=== PATIENT | male | born 1965 | race American Indian/Alaskan Native ===

== ENCOUNTER 2017-02-26 07:34 | Day surgery (SDC) | payer MEDICARE ==
[~2017-02-26 07:34] MED LIST: LEXISCAN IV ONE; NACL 0.9 (PRIMING MACHINE ONLY DIALYSIS) MC ONE; PROVENTIL IH ONE
[2017-02-26] MEDS ORDERED: WATER FOR IRRIG STERILE IR ONE (08:11)
[2017-02-26] MEDS ORDERED: WATER FOR IRRIG STERILE ONE (08:12)
[2017-02-26] MEDS ORDERED: DIPRIVAN 10 MG/ML IV ONE ×3 (08:52→09:27)
[2017-02-26] MEDS ORDERED: NACL 0.9% 1000 ML 1,000 ML IV SCH (09:00)
--- NOTE | 2017-02-26 09:24 | Post Operative Note ---
Pre-op diagnosis: screening colonsocopy Post-op diagnosis: other (1.2 cm semi-pedunculated polyp removed, few tics) Findings: ~1.2 cm semi-pedunculated polyp removed with hot snare Few diverticula in the right side of colon Procedure: colonoscopy with polypectomy Anesthesia: MAC Surgeon: SHILPI JHAVERI Estimated blood loss: minimal Pathology: list (Jar A - sigmoid polyp) Specimen disposition: to lab Condition: stable Disposition: same day
[2017-02-26 09:55] VITALS: BP 156/91
--- NOTE | 2017-02-26 10:10 | Anesthesia Day of Surgery ---
Anesthesia Day of Surgery - Day of Surgery Patient Examined: Yes Patient H&P Reviewed: Yes Patient is NPO: Yes
--- NOTE | 2017-02-26 10:10 | Anesthesia Consultation ---
Anesthesia Consult and Med Hx Date of service: 02/26/17 - Airway Anesthetic Teeth Evaluation: Good ROM Head & Neck: Adequate Mental/Hyoid Distance: Adequate Mallampati Class: Class II Intubation Access Assessment: Probably Good - Pulmonary Exam CTA: Yes - Cardiac Exam Cardiac Exam: RRR - Pre-Operative Health Status ASA Pre-Surgery Classification: ASA3 Proposed Anesthetic Plan: MAC - Pulmonary Hx Smoking: Yes (2cigs/day for 20 years) Hx Asthma: No - Cardiovascular System Hx Hypertension: Yes Hx Heart Murmur: Yes (grade 2-3) - Central Nervous System Hx Seizures: No CVA: No - Endocrine Hx Renal Disease: Yes Hx End Stage Renal Disease: Yes (dialyze MWF) - Hematic Hx Sickle Cell Disease: No - Additional Comments Anesthesia Medical History Comments: NAC
--- NOTE | 2017-02-26 22:58 | Operative Report ---
PROCEDURE: Colonoscopy. PREOPERATIVE DIAGNOSIS: Screening colonoscopy. POSTOPERATIVE DIAGNOSES: A 1.2 cm polyp removed, diverticulosis. ANESTHESIA: Monitored anesthesia care. COMPLICATIONS: No immediate complications. ESTIMATED BLOOD LOSS: Minimal. DESCRIPTION OF PROCEDURE: After consent was obtained, the patient was placed in left lateral decubitus position. The Fujinon colonoscope was advanced with direct vision through the anus and advanced to the cecum without difficulty. The patient tolerated the procedure well. The views of mucosa were good. The quality of the prep was good. FINDINGS: There was a 1.2 cm semi-pedunculated polyp in the sigmoid colon. The polyp was removed with hot snare and retrieved. There were a few small-mouthed diverticula throughout the colon. IMPRESSION: 1. A 1.2 cm polyp removed as above. 2. Mild diverticulosis. RECOMMENDATIONS: 1. Follow up pathology. 2. High fiber diet daily. 3. Repeat colonoscopy in 3 years for surveillance purposes. 4. RTC as scheduled JOB# [id number] [facility]
--- NOTE | 2017-02-27 10:21 | Post Anesthesia Evaluation ---
- Post Anesthesia Evaluation Patient Participated: Yes Airway Patent: Yes Stable Respiratory Function: Yes Nausea/Vomiting: No Temp > 96.8F: Yes Pain Manageable: Yes Adequeate Hydration: Yes Anesthesia Complications: No Block Receding Appropriately: Not Applicable Patient on Ventilator: No
== END 2017-02-26 07:35 | disposition home or self-care (01) ==
LOC: GIO 07:34
PROVIDERS: ATTEND Internal Medicine Gastroenterology
DX: Z12.11 Encounter for screening for malignant neoplasm of colon (principal); D12.5 Benign neoplasm of sigmoid colon; K57.30 Diverticulosis of large intestine without perforation or abscess without bleeding; F17.210 Nicotine dependence, cigarettes, uncomplicated; I12.0 Hypertensive chronic kidney disease with stage 5 chronic kidney disease or end stage renal disease; N18.6 End stage renal disease; Z99.2 Dependence on renal dialysis
CPT/HCPCS: 45385; 88305; J2704; J2785; J7030

== ENCOUNTER 2017-08-04 04:21 | Emergency (ER) | payer MEDICARE ==
--- NOTE | 2017-08-04 04:41 | Emergency Department Report ---
HPI - General Chief Complaint: Cardiac Arrest/CPR Time Seen by Provider: 08/04/17 04:36 - HPI HPI: The patient is given 51-year-old male with a history of end-stage renal disease , who presents via EMS in cardiac arrest. Per EMS the patient was found unresponsive in cardiac arrest 35 minutes prior to arrival. EMS states that the patient was last observed normal at 2 AM, 2 hours prior to arrival. EMS states that they immediately started CPR and provided the patient multiple rounds of epinephrine and CPR prior to arrival. ED Past Medical Hx - Past Medical History Hx Hypertension: Yes Hx Congestive Heart Failure: No Hx Diabetes: No Hx Renal Disease: Yes (Dialysis -W- [facility] Dr. [place]) Hx Sickle Cell Disease: No Hx Seizures: No Hx Asthma: No Hx COPD: Yes - Surgical History Additional Surgical History: RIGHT ARM AV GRAFT - Social History Smoking Status: Never Smoker - Medications Home Medications: Home Medications Medication Instructions Recorded Confirmed Last Taken Type Amlodipine Besylate [Norvasc] 10 mg PO DAILY 07/22/17 07/22/17 07/21/17 History Calcium Acetate [Phoslo] 2 - 3 cap PO TIDWM 07/22/17 07/22/17 07/21/17 History Carvedilol [Coreg] 25 mg PO BID 07/22/17 07/22/17 07/21/17 History cloNIDine [Clonidine] 1 each TD QWEEK 07/22/17 07/22/17 Unknown History hydrALAZINE [Apresoline TAB] 100 mg PO TID 07/22/17 07/22/17 07/21/17 History Pantoprazole [Protonix TAB] 40 mg PO DAILY #30 tablet 07/24/17 Unknown Rx ED Review of Systems ROS: Stated complaint: CARDIAC ARREST Other details as noted in HPI Comment: Unobtainable due to pts medical conditions (unresponsive) Physical Exam - Physical Exam Physical Exam: Physical Exam: General: well-nourished, well-developed Head: Normocephalic, atraumatic Eyes: Pupils were fixed and dilated, unresponsive to light ENT: ET tube present in mouth Neck: no appreciable carotid bruit or thrill Respiratory: Breath sounds equal with bagging/assisted ventilations Cardio: No distal pulses, extremities cold to touch Abdomen: soft abdomen, no obvious distention, no epigastric breath sounds with assisted ventilation Musc: No pitting edema Skin: No rash Neuro: Patient unresponsive to verbal or painful stimuli, no abnormal tonicity or posturing ED Medical Decision Making - Medical Decision Making The patient was seen and examined by myself. The patient is placed on a cardiac cath rn and continuous pulse ox. On arrival the patient was found to remain unresponsive and in cardiac arrest. Initial monitor rhythm in ED exhibits asystole. NS fluid bolus was started, and the patient is given epinephrine, calcium gluconate, and sodium bicarbonate. FS Glucose found to be wnl. Despite multiple rounds of CPR and ACLS medications given to the patient, the patient remained without pulse and in cardiac arrest. As the patient has wide and fixed dilated pupils bilaterally, and has been in cardiac arrest for greater than 45 minutes, the patient has very poor chance of return of spontaneous circulation. The resuscitation team was queried regarding additional resuscitation efforts. No further ideas were volunteered. The resuscitation team agreed that best efforts to resuscitate the patient have been made. The resuscitation code is discontinued and the patient is pronounced . Critical care attestation.: If time is entered above; I have spent that time in minutes in the direct care of this critically ill patient, excluding procedure time. ED Disposition Clinical Impression: Cardiac arrest Disposition: DC-20 Is pt being admited?: No Does the pt Need Aspirin: No Condition: Critical Time of Disposition: 04:36
[2017-08-04] MEDS ORDERED: SODIUM BICARBONATE IV ONE (11:09)
[2017-08-04] MEDS ORDERED: NARCAN 2 MG/2 ML ONE (11:09)
[2017-08-04] MEDS ORDERED: MAGNESIUM SULFATE ONE (11:09)
[2017-08-04] MEDS ORDERED: ADRENALIN ONE (11:09)
== END 2017-08-04 06:50 ==
LOC: ED 04:21
DX: I46.9 Cardiac arrest, cause unspecified (principal); I13.11 Hypertensive heart and chronic kidney disease without heart failure, with stage 5 chronic kidney disease, or end stage renal disease; N18.6 End stage renal disease; J44.9 Chronic obstructive pulmonary disease, unspecified
CPT/HCPCS: 82962; 92950; 99285; J0171; J2310; J3475